=== PATIENT | male | born 1980 | race Caucasian/White ===

== ENCOUNTER 2017-03-16 02:13 | Emergency (ER) | payer MEDICAID ==
[~2017-03-16] VITALS: Ht 188 cm; Wt 73.3 kg
[~2017-03-16 02:13] MED LIST: ACET325 PO; HYDR-3535 PO; NAPR220T95 PO; REME15TA PO
[2017-03-16 02:17] VITALS: BP 122/86; PULSE 80; RESP 14; TEMP 98; O2SAT 97
[2017-03-16] MEDS ORDERED: SODIUM CHLOR 0.9% 1000 ML INJ 1,000 ML IV ONE (02:24)
--- NOTE | 2017-03-16 02:29 | PD ---
HPI Chief Complaint: Headache Time Seen by Provider: 02:20 Travel History International Travel<30 days: No Contact w/Intl Traveler<30days: No Traveled to known affect area: No History of Present Illness HPI The patient is a 36-year-old male who presents emergency department for headache. The patient states his headache started approximately noon earlier today, onset was gradual, located over the frontal aspect and wraps around the head in a bandlike fashion. The patient does note he had aura prior to the headache, visual "lightning", followed by headache, nausea, vomiting, photophobia, and phonophobia. The patient does have a history of migraines with similar symptoms in the past which have resolved with IV medications. The patient is followed by his neurologist, Dr. Díaz, however, takes no preventative medications for his migraines. Patient does state he has had CTs and MRIs in the past which are unremarkable. He denies any focal deficits of the upper or lower extremities. He does complain of some bilateral posterior neck pain, but denies any associated fever. PFSH Past Medical History Hx Anticoagulant Therapy: No Bipolar Disorder: Yes Anxiety: Yes Cardiovascular Problems: No Chemotherapy: No Cerebrovascular Accident: No Diabetes: No Diminished Hearing: No Musculoskeletal: Yes (CHRONIC BACK PAIN) Psychiatric: Yes (INTERMITTENT EXPLOSIVE DISORDER) Respiratory: No Immunizations Current: Yes Migraines: Yes Pancreatitis: Yes Past Surgical History Hysterectomy: No Other Surgery: Yes (RIGHT SHOULDER RECONSTRUCTION) Social History Alcohol Use: Yes (quit 30 days ago) Tobacco Use: Yes (10/19 ppd) Substance Use: Yes (THC, COCAINE) Allergies-Medications (Allergen,Severity, Reaction): Coded Allergies: Contrast Media (Verified Allergy, Severe, Hives, 03/16/17) Egg Yolk (Verified Allergy, Severe, Anaphylaxis, 03/16/17) Morphine (Verified Allergy, Mild, ANXIETY , 03/16/17) Penicillin (Verified Allergy, Unknown, FAMILY HX OF, 03/16/17) Atenolol (Verified Adverse Reaction, Intermediate, H/A, 03/16/17) Phenergan (Verified Adverse Reaction, Intermediate, HIVES, 03/16/17) Aspirin (Verified Adverse Reaction, Mild, GI UPSET, 03/16/17) Codeine (Verified Adverse Reaction, Mild, GI UPSET, 03/16/17) Reported Meds & Prescriptions Reported Meds & Active Scripts Active Reported Lortab (Hydrocodone-Acetaminophen) 10-325 Mg Tab 1 Tab PO TID PRN Mirtazapine 15 Mg Tab 15 Mg PO HS Review of Systems Except as stated in HPI: all other systems reviewed are Neg General / Constitutional: No: Fever Eyes: Positive: Photophobia HENT: Positive: Headaches, Neck Pain Cardiovascular: No: Chest Pain or Discomfort Respiratory: No: Shortness of Breath Gastrointestinal: Positive: Nausea, Vomiting, No: Abdominal Pain Neurologic: Positive: Headache, No: Focal Abnormalities, Paresthesia, Sensory Disturbance Physical Exam Narrative GENERAL: Awake, alert, very pleasant 36-year-old male appears his stated age and is in no acute respiratory distress. He is initially examined in a room that is darkened. SKIN: Focused skin assessment warm/dry. Multiple tattoos noted. HEAD: Atraumatic. Normocephalic. EYES: Pupils equal and round. 3 mm bilateral and reactive. EOMs are intact. Patient is a was see fingers at a distance of 2 feet without difficulty. ENT: No nasal bleeding or discharge. Mucous membranes pink and moist. Breath smells of cigarettes. NECK: Trachea midline. No JVD. No meningeal signs. CARDIOVASCULAR: Regular rate and rhythm. No murmur appreciated. RESPIRATORY: No accessory muscle use. Clear to auscultation. Breath sounds equal bilaterally. GASTROINTESTINAL: Abdomen soft, non-tender, nondistended. MUSCULOSKELETAL: No obvious deformities. No clubbing. No cyanosis. No edema. NEUROLOGICAL: Awake and alert. No obvious cranial nerve deficits. Motor grossly within normal limits. Normal speech. Nonfocal. Oriented 4. Follows commands without difficulty. PSYCHIATRIC: Appropriate mood and affect; insight and judgment normal. Data Data Last Documented VS Vital Signs Date Time Temp Pulse Resp B/P Pulse Ox O2 Delivery O2 Flow Rate FiO2 03/16/17 04:01 16 03/16/17 03:23 51 102/63 98 Room Air 03/16/17 02:17 98.0 Orders Ecg Monitoring (03/16/17 02:24) Iv Access Insert/Monitor (03/16/17 02:24) Oximetry (03/16/17 02:24) Sodium Chloride 0.9% Flush (Ns Flush) (03/16/17 02:30) Ketorolac Inj (Toradol Inj) (03/16/17 02:30) Diphenhydramine Inj (Benadryl Inj) (03/16/17 02:30) Sodium Chlor 0.9% 1000 Ml Inj (Ns 1000 M (03/16/17 02:24) Prochlorperazine Inj (Compazine Inj) (03/16/17 02:30) Hydromorphone Pf Inj (Dilaudid Pf Inj) (03/16/17 03:30) Ondansetron Inj (Zofran Inj) (03/16/17 03:30) MDM Medical Decision Making Medical Screen Exam Complete: Yes Emergency Medical Condition: Yes Medical Record Reviewed: Yes Differential Diagnosis Differential diagnoses includes migraine, tension headache, cluster headache, subarachnoid hemorrhage, intracranial hemorrhage, sinusitis. Narrative Course IV was established and the patient was placed on cardiac telemetry monitoring and continuous pulse oximetry monitoring. The patient was administered Benadryl , Compazine, Toradol, and IV fluids. At 3:25 AM, the patient states his pain is still 10/10, therefore, the patient was administered 1 mg of Dilaudid and Zofran 4 mg intravenously. The patient was reevaluated at 4:15 AM, his headache has significantly improved, he is requesting to be discharged. Patient has a ride home. He is advised to return home and to sleep, no driving or drinking alcohol for the next 8 hours. Patient agrees and understands. Patient is stable for discharge. Diagnosis Primary Impression: Migraine headache Qualified Code: G43.909 - Migraine without status migrainosus, not intractable , unspecified migraine type Patient Instructions: General Instructions Additional Instructions: Follow-up with your primary physician. Return if symptoms worsen or progress. Disposition: 01 DISCHARGE HOME Condition: Stable Levi Foley MD March 16, 2017 02:29
[2017-03-16] MEDS ORDERED: diphenhydrAMINE HCL 50 MG/ML VIAL IVP ONE (02:30)
[2017-03-16] MEDS ORDERED: SODIUM CHLORIDE 0.9% FLUSH 10 ML FLUSH IVF PRN (02:30)
[2017-03-16] MEDS ORDERED: PROCHLORPERAZINE INJ 10 MG/2 ML VIAL IVP ONE (02:30)
[2017-03-16] MEDS ORDERED: KETOROLAC TROMETHAMINE 30 MG/ML (IVP) VIAL IVP ONE (02:30)
[2017-03-16] MEDS ORDERED: HYDR-3535 PO (02:59)
[2017-03-16] MEDS ORDERED: MIRTA15 PO (02:59)
[2017-03-16 03:23] VITALS: BP 102/63; PULSE 51; RESP 17; O2SAT 98
[2017-03-16] MEDS ORDERED: HYDROmorphone HCL PF 1 MG/ML VIAL IV PUSH ONE (03:30)
[2017-03-16] MEDS ORDERED: ONDANSETRON HCL 4 MG/2 ML VIAL IV PUSH ONE (03:30)
[2017-03-16 04:01] VITALS: RESP 16
[2017-03-16 04:27] VITALS: BP 110/61; TEMP 98.2
== END 2017-03-16 04:34 | disposition home or self-care (01) ==
LOC: PHED 02:13
DX: G43.909 Migraine, unspecified, not intractable, without status migrainosus (principal); R11.2 Nausea with vomiting, unspecified; M54.2 Cervicalgia; F31.9 Bipolar disorder, unspecified; F41.9 Anxiety disorder, unspecified; K85.90 Acute pancreatitis without necrosis or infection, unspecified; F17.200 Nicotine dependence, unspecified, uncomplicated; Z88.5 Allergy status to narcotic agent; Z88.0 Allergy status to penicillin
CPT/HCPCS: 96361; 96374; 96375; 99284; J0780; J1170; J1200; J1885; J2405; J7030

== ENCOUNTER 2017-03-23 03:26 | Emergency (ER) | payer MEDICAID ==
[~2017-03-23] VITALS: Ht 188 cm; Wt 75.5 kg
[~2017-03-23 03:26] MED LIST changes: -ACET325 PO; +MIRTA15 PO; -NAPR220T95 PO; -REME15TA PO
[2017-03-23 03:32] VITALS: BP 116/76; PULSE 84; RESP 16; TEMP 98.2; O2SAT 97
[2017-03-23] MEDS ORDERED: PROPARACAINE HCL 0.5% OPHT SOLN 15 ML BTL LEFT EYE ONE (03:45)
--- NOTE | 2017-03-23 03:56 | PD ---
HPI Chief Complaint: Eye Problems/Injury Time Seen by Provider: 03:50 Travel History International Travel<30 days: No Contact w/Intl Traveler<30days: No Traveled to known affect area: No History of Present Illness HPI 36 year-old male presents to the emergency department for complaint of left eye pain. Patient is noted symptoms since 4 PM on Wednesday. Patient states symptoms began while he was driving his vehicle and he started noticing some pruritus affecting the left eye. Patient does not recall whether he did or did not have his contact lenses in at that time but he cannot find a contact lens. Patient does wear contact lenses. Patient states his right eye is unaffected. Patient states his tetanus status is current within the last 3-4 years. Patient is not diabetic. Patient states he takes prescription hydrocodone every 6 hours for chronic pain syndrome. Patient rates pain as severe 9/10 in intensity. Patient states he cannot open his left eye secondary to marked pain and has noted purulent drainage. Patient denies any known foreign body exposure in the eye was not doing any activity such as drooling or handling heavy equipment. Does not recall anything blowing into the car and getting into his left eye. Patient has not he had a febrile illness. Patient states due to persistent pain he presents now for further evaluation. PFSH Past Medical History Narrative Medical Bipolaranxiety depression, chronic back pain, pancreatitis, migraine headaches ; right shoulder reconstruction; tobacco use; nursing notes reviewed Hx Anticoagulant Therapy: No Bipolar Disorder: Yes Anxiety: Yes Depression: Yes Cardiovascular Problems: No Chemotherapy: No Cerebrovascular Accident: No Diabetes: No Diminished Hearing: No Musculoskeletal: Yes (CHRONIC BACK PAIN) Psychiatric: Yes (INTERMITTENT EXPLOSIVE DISORDER) Respiratory: No Immunizations Current: Yes Migraines: Yes Pancreatitis: Yes Past Surgical History Hysterectomy: No Other Surgery: Yes (RIGHT SHOULDER RECONSTRUCTION) Social History Alcohol Use: Yes (quit 30 days ago) Tobacco Use: Yes (1 ppd) Substance Use: No (THC) Allergies-Medications (Allergen,Severity, Reaction): Coded Allergies: Contrast Media (Verified Allergy, Severe, Hives, 03/23/17) Egg Yolk (Verified Allergy, Severe, Anaphylaxis, 03/23/17) Morphine (Verified Allergy, Mild, ANXIETY , 03/23/17) Penicillin (Verified Allergy, Unknown, FAMILY HX OF, 03/23/17) Atenolol (Verified Adverse Reaction, Intermediate, H/A, 03/23/17) Phenergan (Verified Adverse Reaction, Intermediate, HIVES, 03/23/17) Aspirin (Verified Adverse Reaction, Mild, GI UPSET, 03/23/17) Codeine (Verified Adverse Reaction, Mild, GI UPSET, 03/23/17) Reported Meds & Prescriptions Reported Meds & Active Scripts Active Reported Lortab (Hydrocodone-Acetaminophen) 10-325 Mg Tab 1 Tab PO TID PRN Mirtazapine 15 Mg Tab 15 Mg PO HS Review of Systems Except as stated in HPI: all other systems reviewed are Neg General / Constitutional: No: Fever, Chills Eyes: Positive: Blurred Vision, Photophobia, Drainage, Foreign Body Sensation, Pain, No: Diploplia, Blind Spots HENT: No: Headaches, Neck Pain Cardiovascular: No: Chest Pain or Discomfort Respiratory: No: Shortness of Breath Gastrointestinal: No: Vomiting Genitourinary: No: Flank Pain Musculoskeletal: No: Pain Skin: No Rash Neurologic: No: Weakness Psychiatric: Positive: Anxiety Hematologic/Lymphatic: No: Lymph Node Enlargement Physical Exam Narrative GENERAL: Well-developed well-nourished male in no respiratory distress; in obvious discomfort SKIN: Warm and dry. HEAD: Normocephalic. EYES: No scleral icterus. Left eye with injection with chemosis and purulent drainage. Funduscopic exam of the left eye reveals no papilledema. Bilateral pupils equal round reactive to light extraocular muscles intact; no gross foreign body with and without lid eversion, no gross hyphema, no clouding of the cornea; fluorescein uptake at the 4:00 to 6 o'clock position of the right cornea, no dendritic changes. NECK: Supple, trachea midline. No JVD or lymphadenopathy. CARDIOVASCULAR: Regular rate and rhythm without murmurs, gallops, or rubs. RESPIRATORY: Breath sounds equal bilaterally. No accessory muscle use. Data Data Last Documented VS Vital Signs Date Time Temp Pulse Resp B/P Pulse Ox O2 Delivery O2 Flow Rate FiO2 03/23/17 03:40 03/23/17 03:32 98.2 84 16 97 Orders Proparacaine 0.5% Opth Soln (Alcaine 0.5 (03/23/17 03:45) Eye Irrigation (03/23/17 03:56) Eye Culture (03/23/17 04:23) Erythromycin 0.5% Opth Oint (Ilotycin 0. (03/23/17 04:45) Acetamin-Hydrocod 325-10 Mg ([place] 10-32 (03/23/17 04:45) [facility] Medical Decision Making Medical Screen Exam Complete: Yes Emergency Medical Condition: Yes Medical Record Reviewed: Yes Differential Diagnosis Conjunctivitis, iritis, retained foreign body, retained contact lens, corneal abrasion, shingles, periorbital cellulitis, orbital cellulitis Narrative Course Proparacaine drops placed in left eye; fluorescein stain inserted; no foreign body identified no retained contact lens Left eye irrigated with [place] lens Left eye reassessed again after irrigation; patient given additional drop of proparacaine and visual acuities performed; patient does not have a contact lens in his left eye and does have contact lens in his right eye patient states he thinks he rubs his left eye so much that he rubs his contact lens out of his left eye. Culture specimen obtained from the left eye. IOP: 13; visual acuity (R) with contact in place 20/50; (L) without contact lens in place or corrective lens 20/ 100 Diagnosis Primary Impression: Left corneal abrasion Qualified Code: S05.02XA - Left corneal abrasion, initial encounter Additional Impression: Conjunctivitis, left eye Qualified Code: H10.502 - Blepharoconjunctivitis of left eye, unspecified blepharoconjunctivitis type Referrals: Layout Mechanic 1 day Patient Instructions: Narcotic given in the ED Additional Instructions: Apply cool compresses to the left eye intermittently 12-24 hours Complete antibiotic as prescribed Follow-up with accounts administrator/her accounts administrator times one day No work 2 days Continue chronic medications as chronically prescribed Return to the emergency department for any concerns or change condition Med/Other Pt SpecificInfo: Prescription(s) given Scripts Sulfacetamide Opth Drops (Bleph-10 Opth Drops)10 % Soln1 Drop LEFT EYE Q2H #1 BOTTLE Ref 0 Prov:Jennifer Amaro MD 03/23/17 Disposition: 01 DISCHARGE HOME Condition: Stable Jennifer Amaro MD Mar 23, 2017 03:56
[2017-03-23] MEDS ORDERED: ERYTHROMYCIN 0.5% OPTH OINT 3.5 GM TUBO LEFT EYE ONE (04:45)
[2017-03-23] MEDS ORDERED: ACETAMINOPHEN/HYDROcodone 325 MG/10 MG TAB PO ONE (04:45)
[2017-03-23] MEDS ORDERED: SULF1SOL4 LEFT EYE (04:57)
== END 2017-03-23 05:45 | disposition home or self-care (01) ==
LOC: PHED 03:26
DX: S05.02XA Injury of conjunctiva and corneal abrasion without foreign body, left eye, initial encounter (principal); H10.502 Unspecified blepharoconjunctivitis, left eye; F17.210 Nicotine dependence, cigarettes, uncomplicated; G89.4 Chronic pain syndrome
CPT/HCPCS: 87070; 87205; 99284

== ENCOUNTER 2017-04-13 02:08 | Emergency (ER) | payer MEDICAID ==
[~2017-04-13 02:08] MED LIST changes: +SULF1SOL4 LEFT EYE
[2017-04-13 02:09] VITALS: BP 150/80; PULSE 96; RESP 18; TEMP 98.4; O2SAT 97
[2017-04-13] MEDS ORDERED: REME15TA PO (02:25)
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
[2017-04-13 03:51] VITALS: BP 130/80; PULSE 69; RESP 20; O2SAT 97
[2017-04-13 04:17] LABS: AUTOMATED NEUTROPHIL # 7.1 TH/MM3 (1.8-7.7); BASOPHIL # 0.1 TH/MM3 (0-0.2); BASOPHIL % 0.5 % (0.0-2.0); EOSINOPHIL # 0.1 TH/MM3 (0-0.4); EOSINOPHIL % 1.1 % (0.0-4.0); HEMATOCRIT 41.8 % (39.0-51.0); HEMO FLAGS DIFF FINAL; LYMPH % 31.6 % (9.0-44.0); LYMPHOCYTE # 4.1 TH/MM3 (1.0-4.8); MEAN CELL VOLUME 90.8 FL (80.0-100.0); MEAN CORPUSCULAR HEMOGLOBIN 32.5 PG (27.0-34.0); MEAN CORPUSCULAR HGB CONC 35.8 % (32.0-36.0); MONO % 12.1 % (0.0-8.0); NEUT % 54.7 % (16.0-70.0); PLATELET COUNT 263 TH/MM3 (150-450); RED CELL DISTRIBUTION WIDTH 14.1 % (11.6-17.2)
[2017-04-13 04:30] LABS: ALT (GPT) 37 U/L (12-78); ANION GAP 9 MEQ/L (5-15); AST (GOT) 45 U/L (15-37); BICARBONATE 26.3 MEQ/L (21.0-32.0); BLOOD UREA NITROGEN 11 MG/DL (7-18); CHLORIDE 104 MEQ/L (98-107); GLOMERULAR FILTRATION RATE 93 ML/MIN (>89); MAGNESIUM 2.1 MG/DL (1.5-2.5); POTASSIUM 3.8 MEQ/L (3.5-5.1); SODIUM (NA) 139 MEQ/L (136-145)
--- NOTE | 2017-04-13 04:30 | RADRPT ---
EXAM DATE/TIME: 04/13/2017 04:03 [facility] COMPARISON: CHEST SINGLE AP, July 17, 2014, 6:19. INDICATIONS : Chest pain. MEDICAL HISTORY : None. SURGICAL HISTORY : None. ENCOUNTER: Initial ACUITY: 1 day PAIN SCORE: 0/10 LOCATION: Bilateral chest FINDINGS: A single view of the chest demonstrates the lungs to be symmetrically aerated without evidence of mas s, infiltrate or effusion. The cardiomediastinal contours are unremarkable. Osseous structures are intact. CONCLUSION: The lungs are clear. Michael Carrasquillo MD on April 13, 2017 at 4:28 Board Certified Radiologist. This report was verified electronically.
[2017-04-13 04:32] LABS: ALKALINE PHOSPHATASE 66 U/L (45-117); TOTAL BILIRUBIN ADULT 0.5 MG/DL (0.2-1.0)
[2017-04-13 05:19] LABS: AMPHETAMINE, URINE NEG (NEG); BARBITURATES, URINE NEG (NEG); BLOOD, URINE NEG (NEG); COCAINE, URINE POS (NEG); COMMENT (UR) CULT NOT INDICATED; CULTURE IF INDICATED CULT NOT INDICATED; GLUCOSE,URINE NEG (NEG); KETONE, URINE 10 mg/dL (NEG); MUCUS URINE MOD /lpf (OCC); NITRITE,URINE NEG (NEG); PH, URINE 5.5 (5.0-8.5); URINE COLOR YELLOW (YELLW/STRAW)
[2017-04-13] MEDS ORDERED: SODIUM CHLOR 0.9% 1000 ML INJ 1,000 ML IV ONE (05:45)
[2017-04-13] MEDS ORDERED: ONDANSETRON HCL 4 MG/2 ML VIAL IV ONE (05:45)
[2017-04-13] MEDS ORDERED: KETOROLAC TROMETHAMINE 30 MG/ML (IVP) VIAL IV PUSH ONE (05:45)
--- NOTE | 2017-04-13 06:21 | RADRPT ---
EXAM DATE/TIME: 04/13/2017 05:35 [facility] COMPARISON: CT ABDOMEN & PELVIS W/O CONTRAST, October 30, 2015, 0:28. INDICATIONS : Abdominal pain with nausea and vomiting. ORAL CONTRAST: No oral contrast ingested. RADIATION DOSE: 4.84 CTDIvol (mGy) MEDICAL HISTORY : Pancreatitis. SURGICAL HISTORY : Lumbar surgery. ENCOUNTER: Initial ACUITY: 4 - 6 months PAIN SCALE: 10/10 LOCATION: Diffuse abdomen TECHNIQUE: Volumetric scanning of the abdomen and pelvis was performed. Using automated exposure control and ad justment of the mA and/or kV according to patient size, radiation dose was kept as low as reasonably achievable to obtain optimal diagnostic quality images. DICOM format image data is available electro nically for review and comparison. FINDINGS: LOWER LUNGS: Minimal bibasilar atelectasis. Otherwise, the visualized lower lungs are clear. LIVER: Homogeneous density without lesion. There is no dilation of the biliary tree. No calcified gallston es. SPLEEN: Normal size without lesion. PANCREAS: Within normal limits. KIDNEYS: Normal in size and shape. There is no mass, stone, or hydronephrosis. ADRENAL GLANDS: Within normal limits. VASCULAR: There is no aortic aneurysm. BOWEL/MESENTERY: Examination is performed without oral contrast. No dilated loops of small or large bowel. ABDOMINAL WALL: Within normal limits. RETROPERITONEUM: There is no lymphadenopathy. BLADDER: No wall thickening or mass. REPRODUCTIVE: Within normal limits. INGUINAL: There is no lymphadenopathy or hernia. MUSCULOSKELETAL: Laminectomy and posterior fusion lower lumbar spine. CONCLUSION: Negative CT abdomen/pelvis performed without intravenous and without oral contrast. Michael Carrasquillo MD on April 13, 2017 at 6:16 Board Certified Radiologist. This report was verified electronically.
[2017-04-13] MEDS ORDERED: PROM25TA10 PO (06:49)
[2017-04-13 07:17] VITALS: RESP 17
[2017-04-13] MEDS ORDERED: REGL5TAB PO (07:17)
--- NOTE | 2017-04-13 16:52 | EKG ---
Date Performed: 04/13/2017 Time Performed: 04:38:34 PTAGE: 36 years EKG: Sinus rhythm WITH SINUS ARRHYTHMIA NORMAL ECG NO PREVIOUS TRACING DOCTOR: Artur Tilley Interpretating Date/Time 04/13/2017 16:48:45
== END 2017-04-13 07:38 | disposition home or self-care (01) ==
LOC: NEPE 02:08
DX: R10.13 Epigastric pain (principal); R11.2 Nausea with vomiting, unspecified; I49.9 Cardiac arrhythmia, unspecified; R63.4 Abnormal weight loss; F17.200 Nicotine dependence, unspecified, uncomplicated; Z79.899 Other long term (current) drug therapy; Z87.19 Personal history of other diseases of the digestive system; Z86.59 Personal history of other mental and behavioral disorders; Z87.39 Personal history of other diseases of the musculoskeletal system and connective tissue; Z86.69 Personal history of other diseases of the nervous system and sense organs
CPT/HCPCS: 71010; 74176; 80053; 80307; 81001; 83690; 83735; 85025; 93005; 96361; 96374; 96375; 99285; J1885; J2405; J7030